=== PATIENT | female | born 1960 | race Caucasian/White ===

== ENCOUNTER 2020-01-30 19:33 | Emergency (ER) | payer MEDICAID, SELFPAY ==
[~2020-01-30] VITALS: Ht 165.1 cm; Wt 50.0 kg
[2020-01-30 19:50] VITALS: BP 141/77
== END 2020-01-30 20:37 | disposition home or self-care (01) ==
LOC: ED 20:22
DX: R55 Syncope and collapse (principal); R94.31 Abnormal electrocardiogram [ECG] [EKG]
CPT/HCPCS: 93005; 99283